=== PATIENT | male | born 1995 | race Two or more races ===

== ENCOUNTER 2024-09-13 18:33 | Emergency (ER) | payer MEDICAID, OTHER ==
[~2024-09-13] VITALS: Ht 167.6 cm; Wt 60.0 kg
[2024-09-13] MEDS ORDERED: TETANUS-DIPTH-ACEL PERTUSSIS 0.5ML SYR Tdap IM ONE (19:45)
[2024-09-13] MEDS ORDERED: ACET500T58 PO (19:53)
[2024-09-13] MEDS ORDERED: CLIN1CAP70 PO (19:53)
--- NOTE | 2024-09-13 19:58 | ED.PDOC ---
History of Present Illness(SKN HPI Comments 29 year old male presents to ER with complaints of right foot pain x 1 day. Patient states that he's had a "pimple" to medial aspect of right foot x 10 years that "popped" and got bigger today while he was hiking and wearing tight hiking boots. He reports 8/10 pain to right foot. Denies use of medications for current symptoms. Denies fever, numbness/tingling or any further symptoms/complaints Chief Complaint: Wound Check Time Seen by MD: 18:46 Primary Care Provider: UNKNOWN History of Present Illness: Nurses Notes, Medications, Allergies Allergies: Coded Allergies: NO KNOWN ALLERGIES (Unverified , 09/13/24) Home Meds Active Scripts Acetaminophen (Acetaminophen) 500 Mg Tab, 500 MG PO Q4HPRN, #30 TAB 0 Refills Prov:HARITHA MEDINA 09/13/24 Clindamycin Hcl (Clindamycin Hcl) 300 Mg Cap, 1 CAP PO TID for 7 Days, #21 CAP 0 Refills Prov:HARITHA MEDINA 09/13/24 Information Source: Patient Mode of Arrival: EMS Past Medical History PAST MEDICAL HISTORY: Denies Surgical History: Denies all surgeries Family History Family History: Unknown Social History Lives In: Home Constitutional: denies: chills, diaphoresis, fatigue, fever, malaise, sweats, weakness, others EENTM: denies: blurred vision, double vision, ear bleeding, ear discharge, ear drainage, ear pain, ear ringing, eye pain, eye redness, hearing loss, mouth pain, mouth swelling, nasal discharge, nose bleeding, nose congestion, nose pain, photophobia, tearing, throat pain, throat swelling, voice changes, others Respiratory: denies: cough, hemoptysis, orthopnea, SOB at rest, shortness of breath, SOB with excertion, stridor, wheezing, others Cardiovascular: denies: chest pain, dizzy spells, diaphoresis, Dyspnea on exertion, edema, irregular heart beat, left arm pain, lightheadedness, palpitations, PND, syncope, others Gastrointestinal: denies: abdomen distended, abdominal pain, blood streaked bowels, constipated, diarrhea, dysphagia, difficulty swallowing, hematemesis, melena, nausea, poor appetite, poor fluid intake, rectal bleeding, rectal pain, vomiting, others Genitourinary: denies: burning, dysuria, flank pain, frequency, hematuria, incontinence, penile discharge, penile sore, pain, testicle pain, testicle swelling, urgency, others Neurological: denies: dizziness, fainting, headache, left sided numbness, left sided weakness, numbness, paresthesia, pre-existing deficit, right sided numbness, right sided weakness, seizure, speech problems, tingling, tremors, weakness, others Musculoskeletal: denies: back pain, gout, joint pain, joint swelling, muscle pain, muscle stiffness, neck pain, others Integumetry: reports: others (As stated in HPI) Allergic/Immunocompromised: denies: Difficulty Healing, Frequent Infections, Hives, Itching, others Hematologic/Lymphatic: denies: anemia, blood clots, easy bleeding, easy bruising, swollen glands, others Endocrine: denies: excessive hunger, excessive sweating, excessive thirst, excessive urination, flushing, intolerance to cold, intolerance to heat, unexplained weight gain, unexplained weight loss, others Psychiatric: denies: anxiety, bipolar disorder, depression, hopeless, panic disorder, schizophrenia, sleepless, suicidal, others Physical Exam General Appearance: No Apparent Distress HEENT: PERRL/EOMI Neck: Full Range of Motion, Non-Tender, Normal Respiratory: Chest Non-Tender, Lungs Clear, No Accessory Muscle Use, No Respiratory Distress, Normal Breath Sounds Cardiovascular: No Murmur, No Gallop, Regular Rate/Rhythm Breast Exam: Deferred Gastrointestinal: NOT DONE Genitalia: Deferred Pelvic: Deferred Rectal: Deferred Extremities: Normal capillary refill, Normal range of motion 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 Was a procedure done?: No Images 1 - 2 cm x 2 cm cyst noted to medial aspect of right foot with a centralized 1 cm abrasion. No bleeding/fluctuance/further skin changes noted. No bony tenderness appreciated. Steady gait noted. Patient able to move all toes of right foot. Pulses intact Differential Diagnosis (INTG) Differential Diagnosis: Cellulitis Differential Diagnosis: Abscess Differential Diagnosis: Puncture Wound, Retained Foreign Body, Other (fracture, mass) X-Ray, Labs, Meds, VS Vital Signs Date Time Temp Pulse Resp B/P (MAP) Pulse Ox O2 Delivery O2 Flow Rate FiO2 09/13/24 20:13 109 18 97 Room Air 09/13/24 20:13 98.3 109 18 126/85 (99) 97 98.3 09/13/24 18:36 98.0 118 20 127/80 (96) 99 98.0 PATIENT: VERONICA GRAFT: [id number]: [id number] : 1995 LOC: ER ROOM / BED: / AGE / SEX: 29 / M ADM STATUS: REG ER SERVICE 42 ORDERING PHYSICIAN: HARITHA MEDINA PROCEDURE(s): RFOOT - R FOOT 3 VIEW XRAY REASON: right foot pain ORDER NUMBER(s): [id number], ACCESSION NUMBER(s): [id number] CLINICAL INDICATION: right foot pain TECHNIQUE: XY R FOOT 3 VIEW XRAY Comparison: None FINDINGS/IMPRESSION: There is a focal area of swelling along the medial aspect of the midfoot, seen only on AP view. There is no evidence of acute fracture, erosive change, or dislocation. No radiopaque foreign body identified. ATED BY: COLBY ANGULO MD DICTATED DATE/TIME: 09/13/242016 SIGNED BY: COLBY ANGULO MD SIGNED DATE/TIME: 09/13/242016 CC: Right foot x-ray reviewed Tdap 0.5 mL IM ordered Patient neurovascularly intact Advised to follow up with PCP and podiatry in 1-2 days Advised to return to ER immediately if symptoms worsen Patient was seen walking out of ER [facility] and never returned Patient eloped from emergency department Images Reviewed?: Images reviewed and evaluated by me Time of 1ST Reevaluation: 19:24 Reevaluation 1ST: N/A Patient Education/Counseling: Need For Follow Up, Other (patient eloped) Family Education/Counseling: No Family Present Departure 1 Departure Time of Disposition: 20:32 Impression: Primary Impression: Ganglion cyst of right foot Disposition: 07 LEFT AWOL/ELOPED Condition: Stable Discharged With: Friend Critical Care Note Critical Care Time?: No Stability Stability form required: No Heart Score Heart Score: Heart Score Response (Comments) Value History N/A 0 EKG N/A 0 Age N/A 0 Risk Factors N/A 0 Troponin N/A 0 Total 0 HARITHA MEDINA Sep 13, 2024 19:58
[2024-09-13 20:13] VITALS: BP 126/85; PULSE 109; RESP 18; TEMP 98.3; O2SAT 97
--- NOTE | 2024-09-13 20:19 | DVH ---
CLINICAL INDICATION: right foot pain TECHNIQUE: XY R FOOT 3 VIEW XRAY Comparison: None FINDINGS/IMPRESSION: There is a focal area of swelling along the medial aspect of the midfoot, seen only on AP view. There is no evidence of acute fracture, erosive change, or dislocation. No radiopaque foreign body id entified.
== END 2024-09-13 20:42 | disposition left against medical advice (07) ==
LOC: EDBD 18:33 → ER 18:33
DX: M67.471 Ganglion, right ankle and foot (principal); Z79.2 Long term (current) use of antibiotics; Z79.1 Long term (current) use of non-steroidal anti-inflammatories (NSAID)
CPT/HCPCS: 73630; 90715